=== PATIENT | female | born 1995 | race Caucasian/White ===

== ENCOUNTER → 2016-09-06 | Outpatient (CLI) | payer BC ==
[~2016-09-06] MED LIST: ACET-1311 PO; ATR25 PO; DOCU-94 PO; DPPI150 IM; FLUO20CA36 PO; IBUP-1050 PO
== END | disposition home or self-care (01) ==
LOC: C.LAB 17:14
PROVIDERS: ATTEND Obstetrics & Gynecology
DX: O20.0 Threatened abortion (principal)

== ENCOUNTER → 2016-12-03 | Outpatient (CLI) | payer BC, OTHER ==
[2016-12-06 00:57] LABS: CHLAMYDIA TRACH RNA*** NOT DETECTED (NOT DETECTED); GC (NEIS GONORRHOEAE)RNA** NOT DETECTED (NOT DETECTED)
== END | disposition home or self-care (01) ==
LOC: C.LABSPEC 17:54
PROVIDERS: ATTEND Obstetrics & Gynecology
DX: O20.0 Threatened abortion (principal); Z3A.00 Weeks of gestation of pregnancy not specified

== ENCOUNTER 2016-12-26 22:26 | Inpatient (IN) | payer BC, OTHER ==
[~2016-12-26] VITALS: Ht 175.3 cm; Wt 69.5 kg
[~2016-12-26 22:26] MED LIST changes: -DOCU-94 PO; -DPPI150 IM
[2016-12-26 23:35] VITALS: BMI 22.6
[2016-12-27 01:08] VITALS: Ht 175.3 cm; Wt 69.5 kg
[2016-12-27 01:41] LABS: HEMATOCRIT 33.6 % (37-47); MEAN CELL VOLUME 80.2 fL (80-100); MEAN CORPUSCULAR HEMOGLOBIN 26.5 pg (25-34); MEAN PLATELET VOLUME 11.4 fL (7.4-10.4); PLATELET COUNT 311 K/uL (130-400); RED BLOOD COUNT 4.19 M/uL (4.2-5.4); WHITE BLOOD COUNT 15.34 K/uL (4.8-10.8)
[2016-12-27] MEDS ORDERED: EpHEDrine SULFATE INJ 50 MG/ML AMP ONE (04:00)
[2016-12-27] MEDS ORDERED: FENTANYL CITRATE INJ 50 MCG/1 ML 2 ML VIAL ONE (04:00)
[2016-12-27] MEDS ORDERED: BUPIVACAINE 0.25% 30 ML VIAL ONE (04:00)
[2016-12-27] MEDS ORDERED: FENTANYL 2MCG/ML ROPIV 1.25MG/ML 100ML BAG EPI ONE (04:01)
[2016-12-27] MEDS ORDERED: LACTATED RINGER'S 1000ML 1,000 ML IV PRN (04:19)
[2016-12-27] MEDS ORDERED: LACTATED RINGER'S 1000ML 1,000 ML IV SCH (04:19)
[2016-12-27] MEDS ORDERED: NALOXONE HCL INJ 1 MG in SODIUM CHLORIDE 0.9% 1000ML 1,000 ML IV PRN (05:13)
[2016-12-27] MEDS ORDERED: LACTATED RINGER'S 1000ML 500 ML IV PRN (05:13)
[2016-12-27] MEDS ORDERED: DiphenhydrAMINE HCL 50 MG/ML VIAL IV PRN (05:15)
[2016-12-27] MEDS ORDERED: NALBUPHINE HCL INJ 10 MG/ML AMP IV PRN (05:15)
[2016-12-27] MEDS ORDERED: EpHEDrine SULFATE INJ 50 MG/ML AMP IV PRN (05:15)
[2016-12-27] MEDS ORDERED: ONDANSETRON INJ 2 MG/ML 2 ML VIAL IV PRN (05:15)
[2016-12-27] MEDS ORDERED: NALOXONE HCL INJ 0.4 MG/1 ML VIAL/CARP IV PRN (05:15)
[2016-12-27] MEDS: FENTANYL 2MCG/ML ROPIV 1.25MG/ML 100ML BAG EPI PRN ×2 (06:45→07:03)
[2016-12-27] MEDS ORDERED: OXYTOCIN 30 UNITS/500ML NSS IV ONE (08:42)
[2016-12-27] MEDS ORDERED: LANOLIN OINT EXT PRN ×2 (09:00)
[2016-12-27] MEDS ORDERED: ACETAMINOPHEN 325 MG TAB PO PRN (09:00)
[2016-12-27] MEDS ORDERED: DIPHTHERIA/TETANUS/PERTUSSIS 0.5 ML SYR/VIAL IM. ONE (09:00)
[2016-12-27] MEDS ORDERED: HYDROCORTISONE ACETATE 25 MG SUPP PR PRN (09:00)
[2016-12-27] MEDS ORDERED: OXYTOCIN 30 UNITS/500ML NSS IV PRN (09:00)
[2016-12-27] MEDS ORDERED: ACETAMINOPHEN/CODEINE 300/30MG TAB PO PRN (09:00)
[2016-12-27] MEDS ORDERED: SUPERCREAM 0.870 % 15GM JAR EXT PRN (09:00)
[2016-12-27] MEDS ORDERED: BENZOCAINE 20% AER SPR 82.5 GM CAN EXT PRN (09:00)
--- NOTE | 2016-12-27 09:12 | DELIVERY SUMMARY ---
DATE OF OPERATION: 12/27/2016 FINDINGS: Viable male with apgars of 8 and 9. Baby delivered spontaneously over a small midline second degree laceration. Cord blood samples obtained. Placenta delivered spontaneously. Lacerations repaired in routine fashion. Estimated blood loss was 300 cc. LABOR NOTE: The patient is a 21-year-old 2 para 1 with an EDC of 12/24/2016 who was admitted at 40+ weeks gestational age in active labor. The patient had minimal care. Her fist visit was at 33 weeks in [place] and she transferred her care to our practice at 37 weeks. The patient plans to give this baby up for adoption. Dating for the was based upon the third trimester ultrasound. The patient's previous vaginal delivery two years ago was also adopted out. On admission the patient was felt to be in active labor, ruptured 3 cm dilated 50% effaced -3 station with a category 2 tracing. Anesthesia was consulted. Epidural was placed. The patient progressed to full dilatation, began he second stage, pushed for approximately 10 minutes for a viable male . Cord was clamped and cut. Cord blood samples obtained. Placenta was delivered spontaneously. Inspection of the perineum showed a small midline second degree laceration repaired with interrupted [id number] 2-0 Vicryl sutures. Estimated blood loss 300 cc. Sponge and needle count was correct. I attest to the content of the Intraoperative Record and any orders documented therein. Any exceptio ns are noted below.
--- NOTE | 2016-12-27 09:13 | Anesthesia Procedure Note ---
Anesthesia Epidural Removal Nt Date & Time Dec 27, 2016 at 09:13 Vital Signs Pain Intensity: 0.0 Notes Mental Status: alert / awake / arousable, participated in evaluation Nausea / Vomiting: adequately controlled Pain: adequately controlled Airway Patency, RR, SpO2: stable & adequate BP & HR: stable & adequate Hydration State: stable & adequate Neuraxial Anesthesia: was administered Anesthetic Complications: no major complications apparent, pt satisfied with anesthetic care Epidural: removed without complications, with tip intact
[2016-12-27] MEDS: IBUPROFEN 600 MG TAB PO PRN ×3 (15:08→23:14)
[2016-12-27 15:15] VITALS: BP 112/69; PULSE 81; TEMP 36.8; O2SAT 97
[2016-12-27 16:00] VITALS: BP 123/76; PULSE 57; TEMP 37.1
[2016-12-27 19:30] VITALS: BP 137/84; PULSE 61; TEMP 36.4
[2016-12-27] MEDS: DOCUSATE SODIUM 100 MG CAP PO SCH (19:33)
[2016-12-27 23:05] VITALS: BP 132/84; PULSE 80; TEMP 36.7
[2016-12-27] MEDS: ACETAMINOPHEN/CODEINE 300/30MG TAB PO PRN (23:15)
[2016-12-28 04:14] VITALS: BP 110/70; PULSE 67; TEMP 36.5
--- NOTE | 2016-12-28 06:55 | Discharge Instructions ---
Discharge Instructions Date of Service Dec 28, 2016. Admission Reason for Admission: LABOR Discharge Discharge Diagnosis / Problem: s/p vaginal delivery Discharge Goals Goal(s): Routine recovery after delivery Medications Continue Dispensed Medications: supercream, dermaplast, tucks, lansinoh Activity Recommendations Activity Limitations: as noted below . Instructions / Follow-Up Instructions / Follow-Up ACTIVITY RECOMMENDATIONS: * Gradual return to full activity over the next 2-3 weeks. * No lifting - nothing heavier than baby over the next 2-3 weeks. * Do not engage in vigorous exercise, sexual activity or sports until cleared by your physician. * Do not drive or operate any motorized equipment until cleared by your physician. * You may shower/bathe daily. MEDICATIONS: For discomfort or pain, you may use Acetaminophen (Tylenol), Ibuprofen (Advil), or Naproxen (Aleve) following the package directions. For constipation you may use Colace following the package directions. BREAST CARE: If you are not breast feeding: * Wear a supportive bra 24 hours a day for one to two weeks. * Avoid stimulating your breasts and nipples as much as possible during the first few weeks after delivery. * When taking a shower, have the warm water hit your back, not breasts. * When your breasts feel full, apply ice packs. Usually three to four times a day helps ease the discomfort. * Take a mild pain medication (Tylenol / Motrin) when you are uncomfortable. If breast feeding: * Use breast milk to lubricate nipples. Lansinoh cream may be used for sore nipples. You do not need to remove cream prior to breast feeding. If using a different brand of cream, check the label for directions regarding removal of cream prior to nursing. * Wear a supportive bra. * If having problems with breasts or breast feeding, call a budget consultant or your health care provider. EPISIOTOMY CARE: After delivery, if you have an episiotomy (stitches), the following steps will ease discomfort and aid healing. * For the first 24 hours after delivery, place ice packs next to your episiotomy to help reduce swelling. * After the first 24 hour-period, sitz baths, either portable or in the tub, are suggested. A shower with a shower arm sprayed over the episiotomy may be comforting. * Angélica care should be done after each voiding and bowel movement. Squirt warm water from a plastic bottle over the perineum (region of the body between the anus and urinary opening) and pat dry. * Use Dermoplast to ease discomfort. Shake container. [place] directly over the episiotomy. Place a Tucks on a clean sanitary pad next to your episiotomy. SPECIAL CARE INSTRUCTIONS: When you are discharged from the hospital, it is important for you to follow the instructions listed below: * During the first week at home, you should be able to care for yourself and your baby. In addition, the usual light household activities are encouraged. * Limit your activities to the way you feel. Do not try to clean the house or move furniture. Be sensible. * If you actively engage in sports and have done so up until the time of your delivery, you may resume these activities as soon as you feel able. This may take up to one month or even longer. Use good judgment. * Continue to take your vitamins for at least six weeks after the of your baby. * Your diet need not be limited unless you were on a special diet before your delivery. Breast-feeding mothers need around 2500 calories per day and at least 64-80 ounces of fluid per day (8 to 10 glasses). * You should eat foods from the four major food groups. Crash diets or fad diets are to be avoided. Eating lean meats, fresh fruits and vegetables, low-fat dairy products, high fiber foods and a regular exercise program, will help you get back to your pre- weight without putting your health at risk. * Constipation is sometimes a problem after delivery. Take a mild laxative as needed. If breast feeding, Milk of Magnesia is acceptable to use. You may use a suppository or Fleets enema if no episiotomy. * A daily shower or tub bath is suggested. Be sure to thoroughly and gently dry the perineum. * A bloody vaginal discharge will usually continue until around four weeks post . A small amount of bleeding may continue for as long as six weeks. Vaginal discharge changes from the bright red bleeding after delivery to pink then brownish and finally yellowish-pink before becoming white and disappearing. * Bleeding may increase with activity. Your first period may come in 4-8 weeks. If you are breast feeding, your period may be delayed even longer. * [place] (sex) can begin whenever both you and your partner feel comfortable and do not have any form of genital infection. It is recommended that you wait at least six weeks for internal and external healing to occur. If you have questions, please talk to your health care practitioner. A condom should be used to prevent infection and . * Foreplay, gentle intercourse and lubrication is very important the first several times to prevent pain. A water-based lubricant such as K-Y jelly or Astroglide may be used. * If you have RH negative blood and your baby is RH positive, you will receive RHOGAM by injection prior to discharge. The nurse will give you a card to keep with you that has the date and place that you received RHOGAM after delivery. * During your care, you had a Rubella screen done to check for the presence of rubella antibodies in your blood. If your test was negative, you will receive a Rubella vaccine prior to discharge. This vaccine may cause a fever, soreness at the injection site and flu-like symptoms. If these symptoms persist, notify your health care practitioner. is not advised for one month after a Rubella vaccine. * Verbalizes understanding of car seat law as reviewed with patient nursing. * Car Seat hand-out given and reviewed with patient by nursing. * Shaken baby information reviewed with patient by nursing. Call you doctor if: * Heavy bleeding (saturating several pads an hour) or passing clots the size of your fist. * A fever >101 degrees F (38.3 degrees C) on two occasions four hours apart and /or chills. * Unusual pain in the pelvic or vaginal areas. * "Baby Blues" lasting longer than two weeks. If you have any questions or concerns, call your health care practitioner at . FOLLOW UP VISIT: * Please call the office at to schedule a 6 week examination. It is important you keep this appointment. It is important for you to make arrangements for either yearly or twice yearly check-ups thereafter. Current Hospital Diet Patient's current hospital diet: Regular OB Diet Discharge Diet Recommended Diet: Regular Diet Pending Studies Studies pending at discharge: no Medical Emergencies . Who to Call and When: Medical Emergencies: If at any time you feel your situation is an emergency, please call 911 immediately. . Non-Emergent Contact Non-Emergency issues call your: Stamp Classifier Call Non-Emergent contact if: you have a fever, temperature is above 101 . . "Provider Documentation" section prepared by Yvette Lindsey. . VTE Core Measure Inpt VTE Proph given/why not?: Treatment not indicated
[2016-12-28] MEDS: IBUPROFEN 600 MG TAB PO PRN (06:57)
--- NOTE | 2016-12-28 06:57 | Progress Note ---
Subjective Dec 28, 2016. Subjective conversation w/ patient, physical exam, lab review Ambulation: ambulating normally Voiding: no voiding problems Passing Gas: Yes Diet Tolerance: Regular Diet Lochia: Moderate Pain: improving with meds Comment: Patient was seen at the bedside. No acute event overnight. Review of Systems Constitutional: No fever Respiratory: No shortness of breath Cardiac: No chest pain Breast: No breast lump Abdomen: No nausea, No pain, No vomiting Female : No dysuria, No urinary frequency Denies headache Objective Vital Signs Date Time Temp Pulse Resp B/P Pulse Ox O2 Delivery O2 Flow Rate FiO2 12/28/16 04:14 36.5 67 18 110/70 Room Air 12/27/16 23:05 36.7 80 18 132/84 Room Air 12/27/16 23:05 Room Air 12/27/16 19:30 36.4 61 18 137/84 Room Air 12/27/16 16:00 37.1 57 18 123/76 Room Air 12/27/16 15:15 97 12/27/16 15:15 36.8 81 18 112/69 97 Room Air Physical Exam General Appearance: WELL-APPEARING, WD/WN, NO APPARENT DISTRESS Respiratory/Chest: chest non-tender, lungs clear, normal breath sounds, no respiratory distress Cardiovascular: regular rate, rhythm Abdomen: normal bowel sounds, non tender, soft Fundus: Firm, Relation to Umbilicus (at the U) Extremities: non-tender, no pedal edema, no calf tenderness Laboratory Results Last 24 Hours Test 12/28/16 04:44 Medications Current Inpatient Medications Medications (Trade) Dose Ordered Sig/Josiah Route Start Time Stop Time Status Last Admin Dose Admin Oxytocin (Pitocin IV) 30 units UD PRN IV 12/27/16 09:00 01/26/17 08:59 Benzocaine (Dermoplast Aero Spr) 1 appln PRN PRN EXT 12/27/16 09:00 01/26/17 08:59 Cocaine HCl (Supercream 0.870% Cr) BID PRN EXT 12/27/16 09:00 01/10/17 08:59 Hydrocortisone Acetate (Anusol Hc Supp) 25 mg BID PRN DE 12/27/16 09:00 01/26/17 08:59 Lanolin (Lanolin Oint) PRN PRN EXT 12/27/16 09:00 01/26/17 08:59 Prenat Multivit/ [place]/Iron/Folic Ac ( Vitamin Tab) 1 tab DAILY PO 12/28/16 08:00 01/27/17 07:59 Ibuprofen (Motrin Tab) 600 mg Q4H PRN PO 12/27/16 09:00 01/26/17 08:59 12/27/16 23:14 600 MG Acetaminophen (Tylenol Tab) 650 mg Q6H PRN PO 12/27/16 09:00 01/26/17 08:59 Acetaminophen/ Codeine Phosphate (Tylenol w/ Codeine #3 Tab) 1 tab Q4H PRN PO 12/27/16 09:00 01/26/17 08:59 12/27/16 23:15 1 TAB Acetaminophen/ Codeine Phosphate (Tylenol w/ Codeine #3 Tab) 2 tab Q4H PRN PO 12/27/16 09:00 01/26/17 08:59 Bisacodyl (Dulcolax Tab) 5 mg 20 PO 12/28/16 20:00 12/28/16 20:01 Docusate Sodium (coLACE CAP) 100 mg BID PO 12/27/16 20:00 01/26/17 19:59 12/27/16 19:33 100 MG Ferrous Sulfate (Feosol Tab) 325 mg DAILY PO 12/28/16 08:00 01/27/17 07:59 Medroxyprogesterone Acetate (Depo-Provera Contraceptive) 150 mg ONE ONCE IM 12/28/16 09:00 12/28/16 09:01 Assessment and Plan Problem List Medical Problems: (1) Mood disorder Status: Acute (2) Suicidal ideation Status: Acute Post- Day#: 1 Continue Routine Care: A/P: This is a 21 y/o female, , s/p normal vaginal delivery. She is ambulating and clinically stable to discharge. - Vital signs are reviewed and WNL (Tmax 37.1) - Last Hgb 11.1 - Blood type O+, GBS neg, Rubella Immune - No signs of depression. - Routine care - Discussed resting, feeding, pain control, mastitis, control, follow up in 6 weeks and reasons to call sooner, if necessary. - Continue with pain medication as needed, and continue vitamins. - Encourage breast feeding and educate about breast feeding - Patient understands and keen for home. - Plan to discharge home Resident Physician Supervision Note: I interviewed and examined the patient. Discussed with Dr. Lindsey and agree with findings and plan as documented in the note. Any exceptions or clarifications are listed here: Patient given depo provera prior to d/c Documented By: Ryan Dukes
[2016-12-28] MEDS: DOCUSATE SODIUM 100 MG CAP PO SCH (07:43)
[2016-12-28 07:50] VITALS: BP 121/82; PULSE 69; TEMP 36.7
[2016-12-28] MEDS ORDERED: PRENATAL VITAMIN TAB PO SCH (08:00)
[2016-12-28] MEDS ORDERED: FERROUS SULFATE 325 MG TAB PO SCH (08:00)
[2016-12-28] MEDS ORDERED: DPPI150 IM (08:03)
[2016-12-28] MEDS ORDERED: MedroxyPROGESTERone ACETATE 150 MG/ML 1 ML VIAL IM ONE (09:00)
[2016-12-28] MEDS: ACETAMINOPHEN/CODEINE 300/30MG TAB PO PRN (09:33)
[2016-12-28 10:15] VITALS: BP_DIAS 82; PULSE 69; TEMP 36.7
[2016-12-28] MEDS ORDERED: BISACODYL 5 MG TABEC PO SCH (20:00)
== END 2016-12-28 10:20 | disposition home or self-care (01) | DRG 775 ==
LOC: C.OPB 22:26 → C.LD 22:26 → C.OPB 12-27 01:06 → C.OBG 12-27 15:27
PROVIDERS: ADMIT Obstetrics & Gynecology; ATTEND Obstetrics & Gynecology
PROC: 10E0XZZ Delivery of Products of Conception, External Approach (ICD-10-PCS; principal; 2016-12-27)
PROC: 0KQM0ZZ Repair Perineum Muscle, Open Approach (ICD-10-PCS; principal; 2016-12-27)
DX: O70.1 Second degree perineal laceration during delivery (principal); Z3A.40 40 weeks gestation of pregnancy; Z86.59 Personal history of other mental and behavioral disorders; Z37.0 Single live birth

== ENCOUNTER 2017-01-03 12:52 | Emergency (ER) | payer BC, OTHER ==
[~2017-01-03] VITALS: Ht 175.3 cm; Wt 55.0 kg
[~2017-01-03 12:52] MED LIST changes: -ACET-1311 PO; -ATR25 PO; +DPPI150 IM; -FLUO20CA36 PO; -IBUP-1050 PO
[2017-01-03 13:05] VITALS: TEMP 36.7; Ht 175.3 cm; Wt 55.0 kg
[2017-01-03] MEDS ORDERED: DOCU-94 PO (13:18)
[2017-01-03] MEDS ORDERED: SODIUM CHLORIDE 0.9% 1000ML 1,000 ML IV STA ×2 (13:21)
[2017-01-03] MEDS ORDERED: ONDANSETRON INJ 2 MG/ML 2 ML VIAL IV STA (13:21)
[2017-01-03] MEDS ORDERED: KETOROLAC TROMETHAMINE 30 MG/ML VIAL IV STA (13:21)
[2017-01-03] MEDS ORDERED: IBUP-1050 PO (13:47)
[2017-01-03 14:29] LABS: INR 0.9 (0.9-1.1); PARTIAL THROMBOPLASTIN RATIO 1.1
[2017-01-03 14:34] LABS: BASO % 0.2 %; BASO ABS # 0.03 K/uL (0-0.2); COMPLETE YES; EOS % 0.6 %; IG% 0.5 %; LYMPH % 17.8 %; LYMPH ABS # 2.27 K/uL (1.2-3.4); MEAN CELL VOLUME 79.1 fL (80-100); MEAN CORPUSCULAR HGB CONC 32.9 g/dl (32-36); MEAN PLATELET VOLUME 10.1 fL (7.4-10.4); MONO % 5.2 %; NEUT % 75.7 %; PLATELET COUNT 442 K/uL (130-400); RED BLOOD COUNT 5.31 M/uL (4.2-5.4); WHITE BLOOD COUNT 12.74 K/uL (4.8-10.8)
[2017-01-03 14:36] LABS: BUN/CREATININE RATIO 19.2 (10-20); CALCIUM 9.1 mg/dl (8.5-10.1); CREATININE 0.64 mg/dl (0.60-1.20); POTASSIUM 3.9 mmol/L (3.5-5.1)
[2017-01-03 14:39] LABS: ALB/GLOB RATIO 0.8 (0.9-2)
[2017-01-03 14:43] LABS: URINE APPEARANCE CLEAR (CLEAR); URINE BILIRUBIN NEG (NEG); URINE COLOR YELLOW; URINE NITRITE NEG (NEG); URINE PH 8.5 (4.5-7.5); URINE SPECIFIC GRAVITY 1.009 (1.000-1.030); UROBILINOGEN NEG (NEG)
[2017-01-03 14:47] LABS: MANUAL MICROSCOPIC REQUIRED? NO; REVIEW REQ? NO
--- NOTE | 2017-01-03 15:08 | DIAGNOSTIC IMAGING REPORT ---
PELVIC ULTRASOUND CLINICAL HISTORY: Pelvic pain status post vaginal delivery. COMPARISON STUDY: None. TECHNIQUE: Transabdominal sonography of the pelvis was performed. FINDINGS: The uterus measures 12.2 x 7.4 x 8.6 cm. The endometrium measures 9 mm in thickness. No endometrial mass or areas of increased vascularity are identified on this exam. A 4 mm echogenic focus within the endometrium is of doubtful significance. The ovaries are sonographically normal on transabdominal exam. Trace free fluid is noted. IMPRESSION: 1. Unremarkable appearance of the uterus. No sonographic evidence of retained products of conception. 2. Trace fluid within the pelvis. Electronically signed by: Pankaj Middleton M.D. 01/03/2017 3:07 PM Dictated Date/Time: 01/03/2017 3:06 PM
--- NOTE | 2017-01-03 15:46 | EMERGENCY ROOM VISIT NOTE ---
History First contact with patient: 13:09 Chief Complaint: VAGINAL BLEEDING Stated Complaint: INTENSE CRAMPS AFTER CHILDBIRTH History of Present Illness Patient is a 8 day 21-year-old white female who presents to emergency department for evaluation of increased pelvic cramping over the last hour. Patient delivered last spontaneously under epidural anesthesia. Other than presenting late for her care, was uncomplicated and delivery was unremarkable. She was discharged home 2 days later. Patient reports that she has been feeling fine until about one hour ago. She reported increased pelvic pain, wrapping around bilaterally to her low back. She describes it as a deep, stabbing pain and rated a 7/10. She had some associated nausea which has improved. She took ibuprofen 600 mg with minimal relief of her discomfort. She states the rate of bleeding has been the same despite the increase in pain, she reports that she is changing a pad every 4-5 hours. She denies any fever or chills. She notes slight burning with urination , but attributes this to her vaginal repair. She denies any vaginal or labial pain or abnormal swelling. She reports the child was given up for adoption and she is not breast-feeding. She notes breast tenderness consistent with engorgement, but no increased redness. She is taking Colace for slight constipation, reports her last bowel movement was one hour prior to the onset of her pain and was normal. She did not call OB prior to coming to the emergency department. Review of Systems Review of systems as per HPI. All other systems reviewed were negative. 10 systems reviewed. Past Medical/Surgical History Medical Problems: (1) 40 weeks gestation of (2) Active labor at term (3) Depression (4) Hemorrhagic gastritis (5) Irregular contractions (6) LABOR (7) Mood disorder (8) Pneumonia (9) (10) Scoliosis (11) Suicidal ideation Surgical Problems: (1) History of tonsillectomy and adenoidectomy Electronic medical records are reviewed and summarized as above/below. See Problem List. Family History Cancer Social History Smoking Status: Never Smoker Alcohol Use: occasionally Marital Status: single Housing Status: lives alone Occupation Status: employed Current/Historical Medications Scheduled Ibuprofen (Advil), 400-600 MG PO Q6H Medroxyprogesterone Acetate (Medroxyprogesterone Aceta), 150 MG IM [id number] Allergies Coded Allergies: Penicillins (Verified Allergy, Intermediate, HIVES, 01/03/17) Physical Exam Vital Signs Date Time Temp Pulse Resp B/P Pulse Ox O2 Delivery O2 Flow Rate FiO2 01/03/17 16:10 63 18 121/65 99 01/03/17 13:05 36.7 78 16 126/86 98 Room Air Physical Exam CONSTITUTIONAL: Patient is an uncomfortable appearing 21-year-old white female who is awake and alert and in mild distress due to her discomfort. EYES: Pupils equal, round, reactive to light and accommodation. EOMs intact without nystagmus. Sclera are anicteric. ENT: Tympanic membranes intact, with normal landmarks. External canals are clear. Oral and nasopharynx are clear. Mucous membranes are moist, no lesions , tongue and gums appear normal. NECK: No bruits auscultated. Supple without lymphadenopathy. No thyromegaly. No meningeal signs. Full active range of motion without discomfort. CARDIOVASCULAR: Regular rate and rhythm, with normal S1 and S2, no murmur or gallop or rub is heard. No carotid bruits auscultated. No JVD. Peripheral pulses easily palpable. RESPIRATORY: Breath sounds equal and clear to auscultation without wheezes, rales, or rhonchi heard. Full and equal chest expansion without accessory muscle use or retractions. ABDOMEN: Bowel sounds are present. Abdomen is soft, nondistended, tender to palpation in the low pelvic region, without guarding, rebound or rigidity. INTEGUMENTARY: No lesions or rash, normal skin turgor. LYMPH: No lymphadenopathy. Medical Decision & Procedures ER Provider Diagnostic Interpretation: PELVIC ULTRASOUND CLINICAL HISTORY: Pelvic pain status post vaginal delivery. COMPARISON STUDY: None. TECHNIQUE: Transabdominal sonography of the pelvis was performed. FINDINGS: The uterus measures 12.2 x 7.4 x 8.6 cm. The endometrium measures 9 mm in thickness. No endometrial mass or areas of increased vascularity are identified on this exam. A 4 mm echogenic focus within the endometrium is of doubtful significance. The ovaries are sonographically normal on transabdominal exam. Trace free fluid is noted. IMPRESSION: 1. Unremarkable appearance of the uterus. No sonographic evidence of retained products of conception. 2. Trace fluid within the pelvis. Laboratory Results 01/03/17 14:00 Red Blood Count 5.31, Mean Corpuscular Volume 79.1, Mean Corpuscular Hemoglobin 26.0, Mean Corpuscular Hemoglobin Concent 32.9, Mean Platelet Volume 10.1, Neutrophils (%) (Auto) 75.7, Lymphocytes (%) (Auto) 17.8, Monocytes (%) (Auto) 5.2, Eosinophils (%) (Auto) 0.6, Basophils (%) (Auto) 0.2, Neutrophils # (Auto) 9.63, Lymphocytes # (Auto) 2.27, Monocytes # (Auto) 0.66, Eosinophils # (Auto) 0.08, Basophils # (Auto) 0.03 01/03/17 14:00 Test 01/03/17 14:00 01/03/17 14:20 White Blood Count 12.74 K/uL (4.8-10.8) Red Blood Count 5.31 M/uL (4.2-5.4) Hemoglobin 13.8 g/dL (12.0-16.0) Hematocrit 42.0 % (37-47) Mean Corpuscular Volume 79.1 fL (80-100) Mean Corpuscular Hemoglobin 26.0 pg (25-34) Mean Corpuscular Hemoglobin Concent 32.9 g/dl (32-36) Platelet Count 442 K/uL (130-400) Mean Platelet Volume 10.1 fL (7.4-10.4) Neutrophils (%) (Auto) 75.7 % Lymphocytes (%) (Auto) 17.8 % Monocytes (%) (Auto) 5.2 % Eosinophils (%) (Auto) 0.6 % Basophils (%) (Auto) 0.2 % Neutrophils # (Auto) 9.63 K/uL (1.4-6.5) Lymphocytes # (Auto) 2.27 K/uL (1.2-3.4) Monocytes # (Auto) 0.66 K/uL (0.11-0.59) Eosinophils # (Auto) 0.08 K/uL (0-0.5) Basophils # (Auto) 0.03 K/uL (0-0.2) RDW Standard Deviation 41.0 fL (36.4-46.3) RDW Coefficient of Variation 14.3 % (11.5-14.5) Immature Granulocyte % (Auto) 0.5 % Immature Granulocyte # (Auto) 0.07 K/uL (0.00-0.02) Prothrombin Time 10.0 SECONDS (9.0-12.0) Prothromb Time International Ratio 0.9 (0.9-1.1) Activated Partial Thromboplast Time 29.1 SECONDS (21.0-31.0) Partial Thromboplastin Ratio 1.1 Anion Gap 10.0 mmol/L (3-11) Est Creatinine Clear Calc Drug Dose 120.7 ml/min Estimated GFR () 147.8 Estimated GFR (Non- 127.6 BUN/Creatinine Ratio 19.2 (10-20) Calcium Level 9.1 mg/dl (8.5-10.1) Total Bilirubin 0.4 mg/dl (0.2-1) Aspartate Amino Transf (AST/SGOT) 17 U/L (15-37) Alanine Aminotransferase (ALT/SGPT) 40 U/L (12-78) Alkaline Phosphatase 139 U/L (45-117) Total Protein 7.3 gm/dl (6.4-8.2) Albumin 3.3 gm/dl (3.4-5.0) Globulin 4.0 gm/dl (2.5-4.0) Albumin/Globulin Ratio 0.8 (0.9-2) Urine Color YELLOW Urine Appearance CLEAR (CLEAR) Urine pH 8.5 (4.5-7.5) Urine Specific [place] 1.009 (1.000-1.030) Urine Protein NEG (NEG) Urine Glucose (UA) NEG (NEG) Urine Ketones NEG (NEG) Urine Occult Blood NEG (NEG) Urine Nitrite NEG (NEG) Urine Bilirubin NEG (NEG) Urine Urobilinogen NEG (NEG) Urine Leukocyte Esterase NEG (NEG) Medications Administered Medications (Trade) Dose Ordered Sig/Josiah Route Start Time Stop Time Status Last Admin Dose Admin Sodium Chloride (Nss 1000ml) 1,000 ml @ 999 mls/hr Q1H1M STAT IV 01/03/17 13:21 01/03/17 14:21 DC 01/03/17 14:06 999 MLS/HR Ketorolac Tromethamine (Toradol Inj) 30 mg NOW STAT IV 01/03/17 13:21 01/03/17 13:25 DC 01/03/17 14:07 30 MG Ondansetron HCl (Zofran Inj) 4 mg NOW STAT IV 01/03/17 13:21 01/03/17 13:25 DC 01/03/17 14:06 4 MG ED Course The patient was seen and assessed as above. Old records were reviewed. IV lock was initiated and she was hydrated with normal saline solution. She was medicated with Zofran 4 mg and Toradol 30 mg IV. Laboratory studies including CBC with differential, coags, CMP and urinalysis were ordered. Pelvic ultrasound was obtained. Laboratory studies revealed a slightly elevated white count of 12,700, H&H stable at 13.8 and 42.0, platelet count 442,000. Coags are unremarkable. Electrolytes are without significant abnormality. Liver functions are normal. Urinalysis was clear. Pelvic ultrasound was essentially benign, endometrial lining was 9 mm, no endometrial masses or increased vascularity. Ovaries are normal. The patient was reassessed when she returned from ultrasound. She appeared much more comfortable, was sitting upright on the bed and speaking with her father. All laboratory and diagnostic imaging studies were reviewed with her. Differential diagnoses entertained included UTI, pyelonephritis, cystitis, endometritis, cramping, retained products of conception, among others. Conservative care measures were discussed. She was encouraged to continue ibuprofen and use a heating pad, and to follow-up with [facility] for further care and management. Bleeding precautions were reviewed with the patient. She rated her pain a 0/10 at discharge. Medical Decision See ED course. Impression Primary Impression: Pelvic pain Additional Impression: Status post vaginal delivery Departure Information Referrals No Doctor, Assigned (PCP) Patient Instructions [facility] Additional Instructions Ibuprofen(Motrin, Advil) may be used for fever or pain. Use 600mg every six hours as needed. Take with food. Avoid using more than 2400mg in a 24 hour period. Do not use 2400mg per day for more than three consecutive days without physician direction. Prolonged inappropriate use can lead to stomach upset or ulcers. (AND/OR) Acetaminophen(Tylenol) may be used for fever or pain. Use 1000mg every six hours as needed. Avoid using more than 3000mg in a 24 hour period. Heating pad to the abdomen as needed for discomfort. Rest and avoid any heavy lifting or strenuous activity. Drink plenty of fluids. Diet as tolerated. Follow all other instructions according to [facility]. Follow up with [facility] as scheduled. Return to the ED for worsening pain, heavier bleeding (soaking a pad in an hour or less, passing clots larger than your fist), lightheadedness, dizziness, passing out, fevers, vomiting, worsening of your condition or as needed. Problem Qualifiers
[2017-01-03 16:10] VITALS: BP 121/65; PULSE 63; O2SAT 99
== END 2017-01-03 16:10 | disposition home or self-care (01) ==
LOC: C.EDB 12:53
DX: R10.2 Pelvic and perineal pain (principal); F32.9 Major depressive disorder, single episode, unspecified; K29.71 Gastritis, unspecified, with bleeding; M41.9 Scoliosis, unspecified; Z87.01 Personal history of pneumonia (recurrent); Z80.9 Family history of malignant neoplasm, unspecified